=== PATIENT | male | born 1955 | race Caucasian/White ===

== ENCOUNTER 2020-12-16 05:30 | Day surgery (SDC) | payer SELFPAY ==
[2020-12-09 14:04] LABS: BASOPHILS % (AUTO) 0.5 % (0-1); EOSINOPHILS % (AUTO) 0.5 % (0-6); LYMPHOCYTES # (AUTO) 1.7 X10'3 (1.1-4.8); LYMPHOCYTES % (AUTO) 25.5 % (21-51); MEAN CORPUSCULAR HEMOGLOBIN 27.1 PG (27.0-31.0); MEAN CORPUSCULAR HGB CONC 32.2 g/dL (33.0-36.5); MEAN CORPUSCULAR VOLUME 84.4 FL (78-98); MEAN PLATELET VOLUME 7.2 FL (7.4-10.4); MONOCYTES # (AUTO) 0.6 X10'3 (0-0.9); MONOCYTES % (AUTO) 9.4 % (2-12); NEUTROPHILS # (AUTO) 4.2 X10'3 (1.8-7.7); NEUTROPHILS % (AUTO) 64.1 % (42-75); PRE OP HEMATOCRIT 52.9 % (42.0-52.0); PRE OP PLATELET COUNT 321 X10'3 (140-440); RED BLOOD COUNT 6.26 X10'6 (4.70-6.10); RED CELL DISTRIBUTION WIDTH 16.4 % (11.5-14.5)
[2020-12-09 14:15] LABS: ALBUMIN 3.9 G/DL (3.4-5.0); ALBUMIN/GLOBULIN RATIO 0.9 (1.1-1.5); ALKALINE PHOSPHATASE 100 IU/L (46-116); BLOOD UREA NITROGEN 11 MG/DL (7-18); BUN/CREATININE RATIO 9.9 (5.4-32.0); CALCIUM 9.6 MG/DL (8.5-10.1); CHLORIDE 104 MMOL/L (99-107); CREATININE 1.11 MG/DL (0.60-1.10); PRE OP ALT 26 U/L (30-65); PRE OP ANION GAP 3 (8-16); PRE OP AST 17 U/L (10-37); PRE OP BILIRUB, TOTAL 0.6 MG/DL (0.0-1.0); PRE OP GLUCOSE 89 MG/DL (70-104); PRE OP POTASSIUM 4.1 MMOL/L (3.4-5.1); PRE OP SODIUM 141 MMOL/L (135-145); TOTAL CARBON DIOXIDE 33.9 MMOL/L (24-32); TOTAL PROTEIN 8.4 G/DL (6.4-8.2); eGFR 67 ML/MIN
[~2020-12-16] VITALS: Ht 185.4 cm; Wt 83.3 kg
[~2020-12-16 05:30] MED LIST: GARL500C2 PO; OMEG-15 PO; cefazolin/dext.iso 2gm/100ml IV ONE; famotidine 20mg tablet PO ONE; ringers solution, lacted 1,000 ML IV SCH
[2020-12-16 06:00] VITALS: BP 149/95
[2020-12-16] MEDS ORDERED: LIDOcaine 1% (10mg/ml) 2ml vial ONE (06:05)
[2020-12-16] MEDS ORDERED: BUPIVAcaine/PF 2.5 mg/ml (0.25%) 30ml vial ONE (06:42)
--- NOTE | 2020-12-16 06:45 | NUR ---
PIV ATTEMPT TO RIGHT HAND W/22 GAUGE, UNSUCCESSFUL WITH ATTEMPT, PT BECAME DIZZY AND PALE, PT PLACED IN SUPINE POSITION W/LEGS ELEVATED AND COOL WASH CLOTH APPLIED TO FOREHEAD, 1SP bp 96/52 HR 62, SAO2 99%, REPEAT VS IN 3 MINUTES 110/68 HR 64, SA02 1005. PT STATES FEELING MUCH BETTER, WAITED 30 MINUTES AND PLACED 2 20 GAUGE PIV TO RIGHT A/C AND HAND. DR HEDRICK AND DR RODRIGUEZ AWARE. Addendum: 12/16/20 at 0734 by Olive Juarez RN Amended: Links added.
[2020-12-16] MEDS ORDERED: clindamycin 600mg/D5W 50ml 50 ML IV ONE (07:20)
[2020-12-16] MEDS ORDERED: sevoflurane 250ml liquid IH ONE (07:24)
[2020-12-16] MEDS ORDERED: fentaNYL/PF 50MCG/1 ML 2ML syringe ONE (07:27)
[2020-12-16] MEDS ORDERED: propofol inj 20 ML IV ONE (07:28)
[2020-12-16] MEDS ORDERED: midazolam 1 mg/ML 2ml injection ONE (07:28)
[2020-12-16] MEDS ORDERED: clindamycin phosphate 150mg/ml inj. ONE (07:33)
[2020-12-16] MEDS ORDERED: proCHLORperazine 10 MG/2 ml inj IV PRN (07:45)
[2020-12-16] MEDS ORDERED: ringers solution, lacted 1,000 ML IV SCH (07:45)
[2020-12-16] MEDS ORDERED: meperidine/PF 25mg/ml syringe IV PRN ×3 (07:45)
[2020-12-16] MEDS ORDERED: morphine 4 MG/ML inj SYRINge IV PRN (07:45)
[2020-12-16] MEDS ORDERED: ondansetron/PF 4mg/2ml inj IV PRN (07:45)
[2020-12-16] MEDS ORDERED: morphine 2 MG/ML inj. syringe IV PRN (07:45)
[2020-12-16 08:18] VITALS: BP 125/80
--- NOTE | 2020-12-16 08:18 | NUR ---
Received from OR via [facility] IN STABLE CONDITION , accompanied by Anesthesiologist and COMPUTER FIELD TECHNICIAN report given by Sofia. Addendum: 12/16/20 at 0845 by Ana Mims RN Amended: Links added.
[2020-12-16 08:30] VITALS: BP 126/80
[2020-12-16 08:40] VITALS: BP 121/83
[2020-12-16 08:50] VITALS: BP 140/90
[2020-12-16 09:00] VITALS: BP 147/85
--- NOTE | 2020-12-16 09:18 | NUR ---
PATIENT DISCHARGED FROM PACU IN STABLE CONDITION AFTER DISCHARGE INSTUCTIONS GIVEN. PATIENT GAVE VERBAL UNDERSTANDING OF INSTRUCTIONS GIVEN. PATIENT LEFT FACILITY VIA WHEELCHAIR WITH VOLUNTEER. Addendum: 12/16/20 at 0921 by Ana Mims RN Amended: Links added.
== END 2020-12-16 09:18 | disposition home or self-care (01) ==
LOC: PAS 05:30
PROVIDERS: ATTEND Orthopaedic Surgery Hand Surgery
DX: G56.03 Carpal tunnel syndrome, bilateral upper limbs (principal); G47.30 Sleep apnea, unspecified; I10 Essential (primary) hypertension; Z20.822 Contact with and (suspected) exposure to COVID-19; Z79.899 Other long term (current) drug therapy; Z98.890 Other specified postprocedural states; Z88.0 Allergy status to penicillin
CPT/HCPCS: 29848; 36415; 80053; 82948; 85025; 93005; J2001; J2250; J2704; J3010; J3490; U0003; U0005; A4215; A7000; J7120